=== PATIENT | female | born 1990 | race African-American/Black ===

== ENCOUNTER 2021-02-24 10:06 | Emergency (ER) | payer OTHER, SELFPAY ==
[2021-02-24 10:28] VITALS: BP 135/83; PULSE 93; RESP 18; TEMP 37.1; O2SAT 98; BMI 35.2
--- NOTE | 2021-02-24 10:42 | ED.GENADULT ---
HPI - General Adult General Chief complaint: Upper Respiratory Symptoms Stated complaint: runny nose, cough Time Seen by Provider: 02/24/21 10:14 Source: patient Mode of arrival: ambulatory Limitations: no limitations History of Present Illness HPI narrative: 30-year-old female who presents emergency department for evaluation of viral-like illness. Patient states she has been sick for approximately 6 days. She states she has a headache which she describes as a diffuse, throbbing sensation which is constant and mild to moderate intensity. She states she has had a cough which is mainly nonproductive. She complains of a sore throat which is worse with swallowing. She has nasal conduction. She states she has myalgias but no arthralgias. She had 1-2 episodes of loose diarrheal stool 2 days prior but then this resolved. She denied loss of sense of taste or smell. The patient has not had COVID-19 infection. She has not been vaccinated for COVID-19. She states that her significant other is ill with similar symptoms and had a negative COVID-19 test. She has 2 children 11 years old and 6-month-old that have similar symptoms that are patient is here in the emergency department as well. Related Data Home Medications Medication Instructions Recorded Confirmed No Known Home Meds 02/12/21 02/12/21 Allergies Allergy/AdvReac Type Severity Reaction Status Date / Time No Known Allergies Allergy Verified 02/12/21 11:36 Review of Systems Review of Systems: Yes all other systems are reviewed and are negative [facility] Past Medical History [facility] Narrative: Patient has no chronic medical problems. She smokes 1/4 pack of cigarettes per day times 12 years, she occasionally drinks alcohol, she denies drug use. Surgical History (Updated 02/12/21 @ 11:37 by SRINIVAS Herr) History of 2 sections Family History Family History (Updated 02/12/21 @ 11:38 by SRINIVAS Herr) Mother No problems noted. Father No problems noted. Social History Social History (Updated 02/12/21 @ 11:38 by SRINIVAS Herr) Alcohol intake: current Alcohol intake frequency: a few times a month Smoking Status: Current every day smoker Cigarettes Per Day: 6 Advance Directives: No Advance Directives Information Provided: No Patient : No Physical Exam Vital Signs: Vital Signs: Last Vital Signs Temp 98.8 F 02/24/21 10:28 Pulse 93 02/24/21 10:28 Resp 18 02/24/21 10:28 BP 135/83 02/24/21 10:28 Pulse Ox 98 02/24/21 10:28 Body Mass Index 35.2 Const: General: cooperative and healthy appearing Orientation/consciousness: oriented to person and oriented to place Limitations: no limitations HENMT: Head: Yes normal to inspection, Yes normocephalic and Yes atraumatic Ears: external ears normal General nose exam: Normal external nose present Face and sinus: Yes normal facial exam Mouth: Normal oral and palatal mucosa present Throat: Yes posterior oropharynx normal Eyes: Periorbital: periorbital findings normal Eyelids: Yes eyelids normal Conjunctivae: conjunctivae normal Sclerae: sclerae normal Corneas: corneas normal Pupils: Equal, round and reactive pupils present Direct Ophthalmoscopy: normal light reflex Neck: Neck: Yes full ROM, Yes no lymphadenopathy, Yes no meningeal signs, Yes trachea midline and Yes supple Chest: Chest palpation & inspection: normal inspection of the chest and normal palpation of entire chest wall Resp: Effort & Inspection: normal respiratory effort and able to speak in complete sentences Auscultation: clear to auscultation bilaterally Cardio: Rate: regular rate Rhythm: regular rhythm Heart sounds: S1 normal heart sound present, S2 normal heart sound present and no murmurs GI: Inspection: Yes normal to inspection Palpation (GI): Soft to palpation, nontender, no guarding, not rigid and No hepatosplenomegaly present : General: Yes no CVA tenderness Back/Spine/Pelvis: Back: no CVA tenderness Cervical Spine: normal cervical lordosis Thoracic/Lumbar Spine: thoracic and lumbar spine normal to inspection Skin: Lesions: no lesions Rashes: no rashes Wounds: no wounds Neuro: General: oriented to person, oriented to place and no meningeal signs Cranial nerves: Yes CN's II-XII intact bilaterally and Yes Equal, round and reactive pupils present Cognition (Neuro): normal cognition Motor exam (neuro): 5/5 motor strength present throughout Extrem: General: Yes normal to inspection and Yes full ROM Psych: Appearance: well kempt Mental Status: mental status grossly normal Speech and movement: Normal speech and movement present Affect: normal affect Attitude: cooperative Thought process: Normal thought process present Thought content: Normal thought content present Course Course Course Narrative: 30-year-old female who presents emergency department for evaluation of viral-like illness x6 days. Patient's vital signs were reviewed and were normal. Physical examination was unremarkable. I did discuss viral infections with the patient. The patient was tested for COVID-19 and I will contact her with the results. She was discharged home and given verbal and printed instructions on viral illness. Discharge Plan Discharge Clinical Impression: Viral syndrome Patient Disposition: Home, Self-Care Instructions: Viral Syndrome (ED) Additional Instructions: Your examination and presentation is consistent with a virus causing your symptoms. (Viral syndrome) It can sometimes take 1-2 weeks to get better from my viral infection. Take Tylenol and ibuprofen as needed for pain and fever. Follow-up with your doctor in 2 days. Please return to the emergency department if your symptoms get worse or if you develop any symptoms that are concerning to you. Your test for the COVID-19 virus. I contact to with this result later today. Prescriptions: No Action No Known Home Meds RF: 0
[2021-02-24 11:19] LABS: COVID-19 Test Negative (Negative); IDNOW Serial# 9DD0AD1C
== END 2021-02-24 11:20 | disposition home or self-care (01) ==
PROVIDERS: Emergency Provider Emergency Medicine Emergency Medical Services; PCP Internal Medicine
DX: B34.9 Viral infection, unspecified (principal); R05 Cough; R51.9 Headache, unspecified; Z20.822 Contact with and (suspected) exposure to COVID-19
CPT/HCPCS: 36415; 87635; 99283

== ENCOUNTER 2021-02-25 11:00 | Outpatient (REF) | payer OTHER, SELFPAY ==
[2021-02-25 11:32] LABS: MANUAL DIFF FLAG NO
[2021-02-25 11:38] LABS: Basophils Percent Auto 0.6 % (0-2); Eosinophils Absolute Auto 0.2 X10*3/uL (0.0-0.4); Eosinophils Percent Auto 6.1 % (0-4); Hemoglobin 11.5 g/dl (12.0-16.0); Lymphocytes Absolute Auto 1.4 X10*3/uL (1.2-4.9); Mean Corpuscular HGB Conc 31.1 g/dl (31.0-35.0); Mean Corpuscular Hemoglobin 26.5 pg (27.0-33.0); Mean Corpuscular Volume 85.3 fL (80-98); Mean Platelet Volume 9.1 fL (9.4-12.3); Monocytes Absolute Auto 0.4 X10*3/uL (0.1-1.2); Monocytes Percent Auto 11.6 % (2-11); Neutrophils Absolute Auto 1.3 X10*3/uL (2.0-8.3); Neutrophils Percent Auto 40.7 % (45-73); Platelet Count 302 X10*3/uL (160-400); Red Blood Count 4.34 X10*6/uL (4.20-5.50); Red Cell Distribution Width 15.3 % (11.0-16.0); White Blood Count 3.3 X10*3/uL (4.8-10.8)
[2021-02-25 12:27] LABS: Thyroid Stimulating Hormone 2.18 uIU/mL (0.32-4.0)
[2021-02-25 12:35] LABS: Alanine Aminotransferase 16 U/L (0-31); Albumin Level 4.2 g/dL (3.5-5.0); Alkaline Phosphatase 56 U/L (39-117); Anion Gap 12 (12-20); Aspartate Amino Transferase 16 U/L (5-31); Bilirubin Total 0.3 mg/dL (0.0-1.0); Blood Urea Nitrogen 11 mg/dL (9-16); Calcium 9.6 mg/dL (8.4-10.2); Carbon Dioxide 27 mmol/L (22-29); Chloride 104 mmol/L (96-108); Cholesterol 198 mg/dL; Estimated Glomerular Filt Rate > 60; Glucose Fasting 92 mg/dL (60-99); HDL Cholesterol 51 mg/dL; LDL Cholesterol Calculated 136 mg/dl; Potassium 4.7 mmol/L (3.3-5.1); Sodium 138 mmol/L (135-145); Total Protein 7.3 g/dL (6.5-8.0); Triglycerides 58 mg/dL
== END 2021-02-25 11:01 | disposition home or self-care (01) ==
LOC: HO.LAB 11:00
PROVIDERS: PCP Internal Medicine; Visit Provider Internal Medicine
DX: Z00.00 Encounter for general adult medical examination without abnormal findings (principal); E11.9 Type 2 diabetes mellitus without complications; E03.9 Hypothyroidism, unspecified
CPT/HCPCS: 36415; 80053; 80061; 84443; 85025

== ENCOUNTER 2021-10-06 11:26 | Emergency (ER) | payer OTHER, SELFPAY ==
[2021-10-06 11:30] VITALS: BP 113/57; PULSE 77; RESP 18; TEMP 36.8; O2SAT 100; BMI 30.7
--- NOTE | 2021-10-06 12:22 | PC.NURSE ---
PT [facility]BS- TOLD REGISTRATION 'I DONT KNOW WHY I AM HERE, I WAS JUST SUPPOSE TO GO HAVE LAB WORK THIS RN TO BEDSIDE TO SPEAK W/PT BUT SHE WAS ALREADY SEEN LEAVING BY ANCILLARY STAFF
== END 2021-10-06 12:29 | disposition left against medical advice (07) ==
PROVIDERS: Emergency Provider Emergency Medicine; PCP Internal Medicine
DX: R79.89 Other specified abnormal findings of blood chemistry (principal); M79.642 Pain in left hand; M79.641 Pain in right hand
CPT/HCPCS: 99281; 99282

== ENCOUNTER 2021-10-08 09:11 | Outpatient (REF) | payer OTHER, SELFPAY ==
[2021-10-08 09:22] LABS: MANUAL DIFF FLAG NO
[2021-10-08 09:38] LABS: Basophils Percent Auto 0.7 % (0-2); Eosinophils Absolute Auto 0.1 X10*3/uL (0.0-0.4); Eosinophils Percent Auto 2.9 % (0-4); Hematocrit 35.9 % (37.0-47.0); Imm Gran Abs Auto 0.01 X10*3/uL (0.00-0.03); Imm Gran Pct Auto 0.2 % (0.0-0.4); Lymphocytes Absolute Auto 1.6 X10*3/uL (1.2-4.9); Lymphocytes Percent Auto 37.6 % (20-40); Mean Corpuscular HGB Conc 30.6 g/dl (31.0-35.0); Mean Corpuscular Hemoglobin 27.5 pg (27.0-33.0); Mean Corpuscular Volume 89.8 fL (80.0-98.0); Mean Platelet Volume 9.3 fL (9.4-12.3); Monocytes Absolute Auto 0.4 X10*3/uL (0.1-1.2); Monocytes Percent Auto 8.6 % (2-11); Neutrophils Absolute Auto 2.1 x10*3/uL (2.0-8.3); Platelet Count 380 X10*3/uL (160-400); Red Cell Distribution Width 14.6 % (11.0-16.0); White Blood Count 4.2 X10*3/uL (4.8-10.8)
[2021-10-08 10:02] LABS: Alanine Aminotransferase 16 U/L (0-31); Albumin Level 4.2 g/dL (3.5-5.0); Alkaline Phosphatase 49 U/L (39-117); Anion Gap 12 (12-20); Aspartate Amino Transferase 16 U/L (5-31); Bilirubin Total 0.3 mg/dL (0.0-1.0); Blood Urea Nitrogen 13 mg/dL (9-16); Carbon Dioxide 27 mmol/L (22-29); Chloride 105 mmol/L (96-108); Cholesterol 202 mg/dL; Estimated Glomerular Filt Rate > 60; Glucose Fasting 93 mg/dL (60-99); HDL Cholesterol 52 mg/dL; LDL Cholesterol Calculated 134 mg/dl; Potassium 4.7 mmol/L (3.3-5.1); Sodium 139 mmol/L (135-145); Total Protein 7.2 g/dL (6.5-8.0); Triglycerides 80 mg/dL
[2021-10-08 10:23] LABS: Thyroid Stimulating Hormone 2.14 uIU/mL (0.32-4.0)
== END 2021-10-08 09:12 | disposition home or self-care (01) ==
LOC: HO.LAB 09:11
PROVIDERS: Visit Provider Internal Medicine
DX: Z00.00 Encounter for general adult medical examination without abnormal findings (principal); Z13.0 Encounter for screening for diseases of the blood and blood-forming organs and certain disorders involving the immune mechanism
CPT/HCPCS: 36415; 80053; 80061; 84443; 85025

== ENCOUNTER 2022-03-07 10:01 | Outpatient (REF) | payer OTHER, SELFPAY | END 2022-03-07 10:02 | disposition home or self-care (01) | LOC: HO.LAB 10:01 | PROVIDERS: Visit Provider Internal Medicine | DX: Z20.822 Contact with and (suspected) exposure to COVID-19 (principal); R09.89 Other specified symptoms and signs involving the circulatory and respiratory systems | CPT/HCPCS: U0003; U0005 ==

== ENCOUNTER 2022-03-16 09:25 | Outpatient (REF) | payer OTHER, SELFPAY ==
--- NOTE | 2022-03-16 09:29 | EMG_ITS ---
This is a 31-year-old woman who has had pain and sensitivity in all of her limbs, upper and lower extremities for years, sometimes worse than others. PHYSICAL EXAMINATION: Neurological examination is normal. IMPRESSION: Rule out neuropathy. Nerve conduction EMG study: Normal electrodiagnostic study of both upper extremities with no evidence of nerve entrapment or neuropathy. Normal EMG of the left C5-T1 innervated muscles. MD JENNIFER Booth/LAILA / [id number]
== END 2022-03-16 09:26 | disposition home or self-care (01) ==
LOC: HO.NEURO 09:25
PROVIDERS: PCP Internal Medicine; Visit Provider Internal Medicine
DX: R20.0 Anesthesia of skin (principal)
CPT/HCPCS: 95885; 95913

== ENCOUNTER 2022-05-16 13:34 | Outpatient (REF) | payer OTHER, SELFPAY ==
[2022-05-16 13:52] LABS: MANUAL DIFF FLAG NO
[2022-05-16 14:35] LABS: Basophils Percent Auto 0.5 % (0-2); Eosinophils Absolute Auto 0.1 X10*3/uL (0.0-0.4); Eosinophils Percent Auto 2.7 % (0-4); Hematocrit 36.3 % (37.0-47.0); Hemoglobin 11.5 g/dl (12.0-16.0); Imm Gran Abs Auto 0.02 X10*3/uL (0.00-0.03); Imm Gran Pct Auto 0.5 % (0.0-0.4); Lymphocytes Absolute Auto 1.3 X10*3/uL (1.2-4.9); Lymphocytes Percent Auto 32.1 % (20-40); Mean Corpuscular HGB Conc 31.7 g/dl (31.0-35.0); Mean Corpuscular Hemoglobin 27.3 pg (27.0-33.0); Mean Platelet Volume 9.6 fL (9.4-12.3); Monocytes Absolute Auto 0.4 X10*3/uL (0.1-1.2); Neutrophils Absolute Auto 2.2 x10*3/uL (2.0-8.3); Neutrophils Percent Auto 54.2 % (45-73); Platelet Count 317 X10*3/uL (160-400); Red Blood Count 4.22 X10*6/uL (4.20-5.50); Red Cell Distribution Width 15.1 % (11.0-16.0)
[2022-05-16 15:10] LABS: Anion Gap 12 (12-20); Blood Urea Nitrogen 11 mg/dL (9-16); Calcium 9.5 mg/dL (8.4-10.2); Carbon Dioxide 25 mmol/L (22-29); Chloride 103 mmol/L (96-108); Estimated Glomerular Filt Rate > 60; Glucose Random 80 mg/dL (60-115); Potassium 4.3 mmol/L (3.3-5.1); Sodium 136 mmol/L (135-145)
[2022-05-16 15:20] LABS: Erythrocyte Sedimentation Rate 9 MM/HR (0-20)
[2022-05-16 15:56] LABS: Folate 7.4 ng/mL (> or = 4.0); Vitamin B12 838 pg/mL (200-900)
[2022-05-18 05:15] LABS: Lyme Abs Screen <0.90 index
[2022-05-18 22:28] LABS: Anti Nuclear Antibody Screen NEGATIVE (NEGATIVE)
== END 2022-05-16 13:35 | disposition home or self-care (01) ==
LOC: HO.LAB 13:34
PROVIDERS: PCP Internal Medicine; Visit Provider Psychiatry & Neurology Neurology
DX: G37.9 Demyelinating disease of central nervous system, unspecified (principal); G62.9 Polyneuropathy, unspecified
CPT/HCPCS: 36415; 80048; 82607; 82746; 85025; 85652; 86038; 86039; 86617; 86618

== ENCOUNTER 2022-05-25 09:45 | Outpatient (REF) | payer OTHER, SELFPAY ==
--- NOTE | ~2022-05-25 | MR_ITS ---
EXAMINATION: MR BRAIN WITHOUT CONTRAST CLINICAL INFORMATION: Demyelinating disease. Rule out MS. COMPARISON: None available. TECHNIQUE: Multiplanar, multisequence imaging of the brain was performed without intravenous contrast. FINDINGS: There is no acute infarction, mass, hemorrhage, or extra-axial collection. The ventricles, sulci, and basilar cisterns are normal in size and configuration. The brain parenchyma signal appears normal. No demyelinating plaques are seen. The corpus callosum and posterior fossa structures appear normal. The flow voids of the major intracranial arteries appear intact. The bones and extracranial soft tissues are unremarkable. Mild ethmoid mucosal thickening is noted. MR/MR head/brain wo con IMPRESSION: No acute infarct, mass lesion, intracranial hemorrhage, or evidence of hydrocephalus. No evidence of demyelinating plaques.
== END 2022-05-25 09:46 | disposition home or self-care (01) ==
LOC: HO.MRI 09:45
PROVIDERS: Visit Provider Psychiatry & Neurology Neurology
DX: G37.9 Demyelinating disease of central nervous system, unspecified (principal)
CPT/HCPCS: 70551

== ENCOUNTER 2022-12-16 14:13 | Outpatient (REF) | payer OTHER, SELFPAY ==
[2022-12-17 03:25] LABS: CT PCR NOT DETECTED (Not Detect.); NG PCR NOT DETECTED (Not Detect.)
[2022-12-17 11:36] LABS: BV Int Neg Control Negative (Negative); BV Int Pos Control Positive (Positive)
[2022-12-21 01:10] LABS: HPV mRNA E6/E7 rflx Not Detected (Not Detected)
== END 2022-12-16 14:14 | disposition home or self-care (01) ==
LOC: HO.LNP 14:13
PROVIDERS: PCP Internal Medicine; Visit Provider Advanced Practice Midwife
DX: Z01.419 Encounter for gynecological examination (general) (routine) without abnormal findings (principal); Z11.51 Encounter for screening for human papillomavirus (HPV); R21 Rash and other nonspecific skin eruption; R50.9 Fever, unspecified; N61.0 Mastitis without abscess; N61.1 Abscess of the breast and nipple
CPT/HCPCS: 0353U; 87480; 87510; 87624; 87660; 88142

== ENCOUNTER 2022-12-17 10:20 | Emergency (ER) | payer OTHER, SELFPAY ==
--- NOTE | ~2022-12-17 | XR_ITS ---
EXAMINATION: XR CHEST CLINICAL INFORMATION: Cough. COMPARISON: None TECHNIQUE: 2 views of the chest were obtained. FINDINGS: No significant abnormality is noted involving the heart, lungs, mediastinum, bony thorax or soft tissues. XR/XR chest 2V IMPRESSION: Unremarkable chest examination.
--- NOTE | ~2022-12-17 | US_ITS ---
EXAMINATION: US DIAGNOSTIC ULTRASOUND BREAST, LEFT CLINICAL INFORMATION: Abnormal clinical breast exam. Pain in 3:00 region. Clinical concern for abscess. COMPARISON: None. TECHNIQUE: Ultrasound of the breast is performed with real-time linda scale imaging and color Doppler. FINDINGS: There is some skin thickening. There is no suspicious breast mass demonstrated There are reticular hypoechoic areas within the soft tissues some of which are confluent. These do not have convex borders There is color signal. There is no large confluent collection. US/US breast LT limited IMPRESSION: Ultrasound left breast is abnormal. There are reticular hypoechoic areas in the soft tissues. Pattern could reflect moderately severe cellulitis. I recommend optimal medical management and short interval follow-up ultrasound in approximately 3-5 days. If there are worsening symptoms aspiration of one of the hypoechoic areas could be attempted. ASSESSMENT: BI-RADS 2: Benign RECOMMENDATION: There is no large drainable abscess. An evolving inflammatory process may be present. Close follow-up is necessary. Recommend optimal medical management. Recommend short interval follow-up ultrasound in 3-5 days. 1. Patient should be managed based on the clinical impression. Decision to proceed with biopsy should be based on clinical grounds and degree of clinical concern.
[2022-12-17 10:23] VITALS: BP 111/75; PULSE 88; RESP 17; TEMP 36.7; O2SAT 98; BMI 30.2
--- NOTE | 2022-12-17 10:28 | ECG_ITS ---
Test Reason : L BREAST PAIN Blood Pressure : / mmHG Vent. Rate : 102 BPM Atrial Rate : 102 BPM P-R Int : 130 ms QRS Dur : 084 ms QT Int : 308 ms P-R-T Axes : 065 049 017 degrees QTc Int : 401 ms Sinus tachycardia Otherwise normal ECG No previous ECGs available Referred By: Generic ED Physician Electronically Signed By:IZZY TORRES MD
--- NOTE | 2022-12-17 11:43 | ED.GENADULT ---
HPI - General Adult General Chief complaint: General Medical Stated complaint: l breast issue and labs Time Seen by Provider: 12/17/22 11:35 History of Present Illness HPI narrative: 32y/o female with PMHx of lichen planus and peripheral neuropathy admitted with lump in left breast, discharge from nipple piercing site, fever, sore throat, body aches and headache for 3 days. Pt states she noticed a scratch near her nipple piercing about one week ago and the discharge, fever, body aches began about 3 days ago. Pt denies sick contacts. Pt denies recent changes in medications. Pt denies SOB, N/V/D Related Data Home Medications Medication Instructions Recorded Confirmed gabapentin 300 mg capsule 0 mg PO 10/25/22 12/16/22 Allergies Allergy/AdvReac Type Severity Reaction Status Date / Time No Known Allergies Allergy Verified 12/16/22 14:17 [facility] Past Medical History Medical History Obesity Surgical History History of 2 sections Family History Family History (Updated 12/16/22 @ 14:18 by SRINIVAS Schulz) Mother No problems noted. Father No problems noted. Paternal Grandmother Lung cancer Social History Social History (Updated 12/16/22 @ 14:19 by SRINIVAS Schulz) Housing: Apartment Alcohol intake: current Alcohol intake frequency: a few times a month Patient Tobacco Use Status: Current everyday Tobacco user Tobacco use type: Cigarette Cigarettes Per Day: 2 e-Cigarette/Vaping Use: Never Used Second Hand Smoke Exposure: Yes Substance Use Type: Marijuana Advance Directives: No Advance Directives Information Provided: Yes service: No Current occupational status: unemployed Cognitive needs: No Hearing needs: No Vision needs: Yes (Glasses) Physical Exam ED Vital Signs: Vital Signs - 24 hr 12/17/22 10:23 Temperature 98.1 F Pulse Rate 88 Respiratory Rate 17 Blood Pressure 111/75 Pulse Oximetry 98 Oxygen Delivery Method Room Air BMI result Body Mass Index 30.2 Discharge Plan Discharge Prescriptions: No Action gabapentin 300 mg capsule 0 mg PO
[2022-12-17 11:55] LABS: Hematocrit 32.2 % (37.0-47.0); Hemoglobin 10.4 g/dl (12.0-16.0); Mean Corpuscular HGB Conc 32.3 g/dl (31.0-35.0); Mean Corpuscular Hemoglobin 26.5 pg (27.0-33.0); Mean Corpuscular Volume 81.9 fL (80.0-98.0); Platelet Count 229 X10*3/uL (160-400); Red Blood Count 3.93 X10*6/uL (4.20-5.50); Red Cell Distribution Width 13.7 % (11.0-16.0); White Blood Count 7.9 X10*3/uL (4.8-10.8)
[2022-12-17 12:07] LABS: Anion Gap 14 (12-20); Blood Urea Nitrogen 8 mg/dL (9-16); Calcium 8.6 mg/dL (8.4-10.2); Carbon Dioxide 23 mmol/L (22-29); Chloride 101 mmol/L (96-108); Estimated Glomerular Filt Rate > 60; Glucose Random 89 mg/dL (60-115); Potassium 3.4 mmol/L (3.3-5.1); Sodium 135 mmol/L (135-145)
[2022-12-17 12:50] LABS: MANUAL DIFF FLAG NO
[2022-12-17 12:51] LABS: Basophils Percent Auto 0.4 % (0-2); Eosinophils Percent Auto 0.1 % (0-4); Hematocrit 34.2 % (37.0-47.0); Hemoglobin 10.8 g/dl (12.0-16.0); Imm Gran Abs Auto 0.02 X10*3/uL (0.00-0.03); Imm Gran Pct Auto 0.3 % (0.0-0.4); Lymphocytes Percent Auto 12.5 % (20-40); Mean Corpuscular HGB Conc 31.6 g/dl (31.0-35.0); Mean Corpuscular Hemoglobin 25.8 pg (27.0-33.0); Mean Corpuscular Volume 81.8 fL (80.0-98.0); Mean Platelet Volume 8.6 fL (9.4-12.3); Monocytes Absolute Auto 0.9 X10*3/uL (0.1-1.2); Monocytes Percent Auto 11.4 % (2-11); Neutrophils Percent Auto 75.3 % (45-73); Platelet Count 226 X10*3/uL (160-400); Red Blood Count 4.18 X10*6/uL (4.20-5.50); Red Cell Distribution Width 13.6 % (11.0-16.0)
[2022-12-17 12:56] LABS: INTERNATIONAL NORM RATIO 1.3 (0.9-1.1); Prothrombin Time 15.6 SEC (10.0-13.1)
[2022-12-17 13:04] LABS: Lactic Acid 0.8 mmol/L (0.5-2.0)
[2022-12-17 13:15] LABS: Alanine Aminotransferase 14 U/L (0-31); Albumin Level 4.1 g/dL (3.5-5.0); Alkaline Phosphatase 63 U/L (39-117); Anion Gap 16 (12-20); Aspartate Amino Transferase 18 U/L (5-31); Bilirubin Total 0.5 mg/dL (0.0-1.0); Blood Urea Nitrogen 8 mg/dL (9-16); Calcium 8.9 mg/dL (8.4-10.2); Carbon Dioxide 22 mmol/L (22-29); Chloride 100 mmol/L (96-108); Creatinine Clr Calc Pharmacy 136.3; Estimated Glomerular Filt Rate > 60; Glucose Random 84 mg/dL (60-115); Magnesium 1.7 mg/dL (1.6-2.6); Potassium 3.4 mmol/L (3.3-5.1); Sodium 135 mmol/L (135-145); Total Protein 7.1 g/dL (6.5-8.0)
[2022-12-17 13:17] LABS: HCG Quantitative < 2 mIU/mL
[2022-12-17 13:29] LABS: Influenza A PCR NEGATIVE (Negative); Influenza B PCR NEGATIVE (Negative); Resp Syncy Virus RNA Qual PCR NEGATIVE (Negative); SARS COV2 PCR INHOUSE NEGATIVE (Negative)
--- NOTE | 2022-12-17 14:42 | ED.SKABFB ---
HPI - Skin/Abscess/Foreign Bdy General Chief complaint: General Medical Stated complaint: l breast issue and labs Time Seen by Provider: 12/17/22 11:35 Source: patient Mode of arrival: ambulatory Limitations: no limitations History of Present Illness HPI narrative: 32yoF with a PMHx of lichen planus and peripheral neuropathy presenting to the ER with complaints of a lump in the left breast, discharge from nipple piercing site that she obtained in July of 2022, subjective fevers fever, chills, sore throat, body aches and headache for 3 days. Pt states she noticed a scratch near her nipple piercing about one week ago and the discharge, fever, body aches began about 3 days ago. Patient denies any measured fevers, dizziness, neck pain/stiffness, trouble swallowing or breathing, cough, chest pain or shortness of breath, nasal congestion/rhinorrhea, recent falls or trauma, current breast-feeding, recent or , sick contacts, change in medications, nausea/vomiting/diarrhea, abdominal pain, back pain, flank pain, dysuria, hematuria, abnormal vaginal discharge black or bloody stools, lower extremity edema or calf tenderness or any other symptoms complaints or concerns at this time. Reports she has never had this in the past. MD complaint: abscess/boil Onset (ago): week(s) (1) Location: chest (Left breast) Severity: moderate Quality: aching and constant Pain Consistency: constant Relieving factors: none Exacerbating factors: palpation and movement Context: other (History of a nipple piercing in July of 2022) Associated symptoms: fever, chills, malaise and myalgias Treatments prior to arrival: none Related Data Home Medications Medication Instructions Recorded Confirmed gabapentin 300 mg capsule 0 mg PO 10/25/22 12/16/22 Previous Rx's Medication Instructions Recorded cephalexin 500 mg capsule 500 mg PO Q8H 10 days #30 caps 12/17/22 doxycycline monohydrate 100 mg 100 mg PO BID 10 days #20 tabs 12/17/22 tablet ibuprofen 800 mg tablet 800 mg PO Q8H PRN pain #14 tabs 12/17/22 oxycodone 5 mg tablet 5 mg PO Q6H PRN pain #14 tabs 12/17/22 Allergies Allergy/AdvReac Type Severity Reaction Status Date / Time No Known Allergies Allergy Verified 12/16/22 14:17 Review of Systems Review of Systems: Constitutional : + generalized fatigue/malaise/subjective fevers and chills, Denies history of same, Denies any other sites involved, Denies IV drug use, Denies history of MRSA, Denies swollen glands, Denies injury, + Sig Pain, Denies Systemic symptoms Cardiovascular : No Chest Pain, No SOB Respiratory : No Dyspnea Gastrointestinal : No abdominal pain Musculoskeletal : No Joint Swelling Skin : + surrounding erythema/swelling to left breast area with discharge from the nipple through the nipple ring holes, no obvious abscess, No skin laceration, No Foreign bodies, No spreading rash, Denies bites Neuro : No Weakness, No Numbness/tingling Psych : No SI/HI/thoughts of self injury Yes all other systems are reviewed and are negative [facility] Past Medical History Attestation statement: The following information was validated with the patient. Source: old records reviewed and nursing notes reviewed Medical History Obesity Surgical History History of 2 sections Family History Family History Mother No problems noted. Father No problems noted. Paternal Grandmother Lung cancer Social History Social History Housing: Apartment Alcohol intake: current Alcohol intake frequency: a few times a month Patient Tobacco Use Status: Current everyday Tobacco user Tobacco use type: Cigarette Cigarettes Per Day: 2 e-Cigarette/Vaping Use: Never Used Second Hand Smoke Exposure: Yes Substance Use Type: Marijuana Advance Directives: No Advance Directives Information Provided: Yes service: No Current occupational status: unemployed Cognitive needs: No Hearing needs: No Vision needs: Yes (Glasses) Physical Exam Vital Signs: Vital Signs: Last Vital Signs Temp 98.1 F 12/17/22 10:23 Pulse 88 12/17/22 10:23 Resp 17 12/17/22 10:23 BP 111/75 12/17/22 10:23 Pulse Ox 98 12/17/22 10:23 O2 Del Method 12/17/22 10:23 BMI result Body Mass Index 30.2 vital signs have been reviewed as normal and appeared to be correct. Blood pressure normal Heart rate normal. Respiration rate normal. Temperature normal. Oxygen saturation normal. Appearance: Alert. Oriented X3. No acute distress. Head: Normal external exam. Normocephalic. Atraumatic. Eyes: PERRLA. EOMI. Conjunctiva and sclera normal. Eyelids normal. ENT: EAC normal. TM's Normal. Pharynx normal. Uvula midline. Moist mucous membranes. No lesions/ulcerations or masses noted on the tongue. Normal voice. No trismus noted. No drooling noted. No muffled voice noted. Neck: Normal inspection. Neck supple. FROM. No adenopathy. Thyroid Normal. No meningeal signs. CVS: Normal heart rate and rhythm. Heart sound normal. Pulses normal throughout. No murmurs/rales/gallops. Respiratory: No respiratory distress. Painless inspiration. Breath sounds normal. No wheezes/rales/rhonchi noted. No accessory muscle usage noted or decreased air movement noted. Breast: Right breast within normal limits. Left breast patient has moderate erythema/soft tissue swelling and warmth to touch with tenderness palpation to the 3-6 o'clock area. She is noted to have a nipple ring in place with purulent drainage excreting from the nipple ring. There is no induration of the nipples. There is no obvious abscess. There are no signs of trauma. Abdomen: Soft and nontender. Back: Full range of motion noted. Nontender. Skin: Skin warm and dry. Normal skin color. Normal skin turgor. No rashes/lesions/lacerations noted. Extremities: Extremities exhibit normal range of motion and nontender. Neuro: Oriented X 3. No motor deficit. No sensory deficit. Reflexes normal. Normal steady gait. No focal neuro deficits noted. CN's II-XII intact bilaterally? Vascular: + radial pulses. Normal cap refill. No cyanosis noted to upper extremity nails Course Course Course Narrative: 32yoF with a PMHx of lichen planus and peripheral neuropathy presenting to the ER with complaints of a lump in the left breast, discharge from nipple piercing site that she obtained in July of 2022, subjective fevers fever, chills, sore throat, body aches and headache for 3 days. Pt states she noticed a scratch near her nipple piercing about one week ago and the discharge, fever, body aches began about 3 days ago. Reports she has never had this in the past. Concern for cellulitis versus abscess versus mass. Although most likely cellulitis as patient is not . Plan: Will obtain labs, blood cultures, lactic acid, chest x-ray, ultrasound of left breast limited, COVID/RSV/flu swab, EKG and re-evaluate. Reevaluation(s) Reevaluation #1: Labs reviewed - mild anemia with an H&H of 10.8/34.2. - BUN 8 - patient negative for COVID/RSV/flu - serum quant negative Otherwise all other labs are within normal limits. Chest x-ray within normal limits no acute processes noted. Breast ultrasound negative for any large drainable abscess although they are reporting possible breast cellulitis. On my exam this is consistent with breast cellulitis. Will DC home with antibiotics doxycycline and Keflex with instructions to follow-up with her PCP for repeat imaging and outpatient mammogram. I also will give her the number to the general surgeon for consultation. And instructions return if any new or worsening symptoms. Patient understands agrees with this plan. Time: 14:54 Consultations Time: 14:54 Medical Decision Making Admission/Observation Consideration of admission/observation: Escalation of care including admission/observation considered (I considered admission although patient does not meet inpatient criteria at this time she has not been on antibiotics and her labs are within normal limits at this time) Lab Data MDM Lab Attestation statement: I reviewed the patient's lab results. 12/17/22 12:43 12/17/22 12:43 Labs: Lab Results 12/17/22 12/17/22 12/17/22 Range/Units 11:50 11:50 12:43 WBC 7.9 8.0 (4.8-10.8) X10*3/uL RBC 3.93 L 4.18 L (4.20-5.50) X10*6/uL Hgb 10.4 L 10.8 L (12.0-16.0) g/dl Hct 32.2 L 34.2 L (37.0-47.0) % MCV 81.9 81.8 (80.0-98.0) fL MCH 26.5 L 25.8 L (27.0-33.0) pg MCHC 32.3 31.6 (31.0-35.0) g/dl RDW 13.7 13.6 (11.0-16.0) % Plt Count 229 D 226 (160-400) X10*3/uL MPV 9.0 L 8.6 L (9.4-12.3) fL Immature Gran % (Auto) 0.3 (0.0-0.4) % Neut % (Auto) 75.3 H (45-73) % Lymph % (Auto) 12.5 L (20-40) % Jefferson % (Auto) 11.4 H (2-11) % Eos % (Auto) 0.1 (0-4) % Baso % (Auto) 0.4 (0-2) % Lymph # (Auto) 1.0 L (1.2-4.9) X10*3/uL Jefferson # (Auto) 0.9 (0.1-1.2) X10*3/uL Eos # (Auto) 0.0 (0.0-0.4) X10*3/uL Baso # (Auto) 0.0 (0.0-0.2) X10*3/uL Abs Immat Gran (auto) 0.02 (0.00-0.03) X10*3/uL Absolute Neuts (auto) 6.0 (2.0-8.3) x10*3/uL Absolute Nucleated RBC 0.000 0.000 (0.0-0.012) X10*3/uL Nucleated RBC % (auto) 0.0 0.0 (0.0-0.2) /100WBC PT (10.0-13.1) SEC INR (0.9-1.1) Sodium 135 (135-145) mmol/L Potassium 3.4 D (3.3-5.1) mmol/L Chloride 101 (96-108) mmol/L Carbon Dioxide 23 (22-29) mmol/L Anion Gap 14 (12-20) BUN 8 L (9-16) mg/dL Creatinine 0.77 (0.5-1.4) mg/dL Estim Creat Clear Calc 138.0 Estimated GFR > 60 Random Glucose 89 (60-115) mg/dL Lactic Acid (0.5-2.0) mmol/L Calcium 8.6 D (8.4-10.2) mg/dL Magnesium (1.6-2.6) mg/dL Total Bilirubin (0.0-1.0) mg/dL AST (5-31) U/L ALT (0-31) U/L Alkaline Phosphatase (39-117) U/L Total Protein (6.5-8.0) g/dL Albumin (3.5-5.0) g/dL Beta HCG, Quant mIU/mL Influenza Type A (PCR) (Negative) Influenza Type B (PCR) (Negative) RSV RNA Qual (PCR) (Negative) SARS-CoV-2 RNA (RT-PCR) (Negative) 12/17/22 12/17/22 12/17/22 Range/Units 12:43 12:43 12:43 WBC (4.8-10.8) X10*3/uL RBC (4.20-5.50) X10*6/uL Hgb (12.0-16.0) g/dl Hct (37.0-47.0) % MCV (80.0-98.0) fL MCH (27.0-33.0) pg MCHC (31.0-35.0) g/dl RDW (11.0-16.0) % Plt Count (160-400) X10*3/uL MPV (9.4-12.3) fL Immature Gran % (Auto) (0.0-0.4) % Neut % (Auto) (45-73) % Lymph % (Auto) (20-40) % Jefferson % (Auto) (2-11) % Eos % (Auto) (0-4) % Baso % (Auto) (0-2) % Lymph # (Auto) (1.2-4.9) X10*3/uL Jefferson # (Auto) (0.1-1.2) X10*3/uL Eos # (Auto) (0.0-0.4) X10*3/uL Baso # (Auto) (0.0-0.2) X10*3/uL Abs Immat Gran (auto) (0.00-0.03) X10*3/uL Absolute Neuts (auto) (2.0-8.3) x10*3/uL Absolute Nucleated RBC (0.0-0.012) X10*3/uL Nucleated RBC % (auto) (0.0-0.2) /100WBC PT 15.6 H (10.0-13.1) SEC INR 1.3 H (0.9-1.1) Sodium 135 (135-145) mmol/L Potassium 3.4 (3.3-5.1) mmol/L Chloride 100 (96-108) mmol/L Carbon Dioxide 22 (22-29) mmol/L Anion Gap 16 (12-20) BUN 8 L (9-16) mg/dL Creatinine 0.78 (0.5-1.4) mg/dL Estim Creat Clear Calc 136.3 Estimated GFR > 60 Random Glucose 84 (60-115) mg/dL Lactic Acid 0.8 (0.5-2.0) mmol/L Calcium 8.9 (8.4-10.2) mg/dL Magnesium 1.7 (1.6-2.6) mg/dL Total Bilirubin 0.5 (0.0-1.0) mg/dL AST 18 (5-31) U/L ALT 14 (0-31) U/L Alkaline Phosphatase 63 (39-117) U/L Total Protein 7.1 (6.5-8.0) g/dL Albumin 4.1 (3.5-5.0) g/dL Beta HCG, Quant < 2 mIU/mL Influenza Type A (PCR) (Negative) Influenza Type B (PCR) (Negative) RSV RNA Qual (PCR) (Negative) SARS-CoV-2 RNA (RT-PCR) (Negative) 12/17/22 Range/Units 12:44 WBC (4.8-10.8) X10*3/uL RBC (4.20-5.50) X10*6/uL Hgb (12.0-16.0) g/dl Hct (37.0-47.0) % MCV (80.0-98.0) fL MCH (27.0-33.0) pg MCHC (31.0-35.0) g/dl RDW (11.0-16.0) % Plt Count (160-400) X10*3/uL MPV (9.4-12.3) fL Immature Gran % (Auto) (0.0-0.4) % Neut % (Auto) (45-73) % Lymph % (Auto) (20-40) % Jefferson % (Auto) (2-11) % Eos % (Auto) (0-4) % Baso % (Auto) (0-2) % Lymph # (Auto) (1.2-4.9) X10*3/uL Jefferson # (Auto) (0.1-1.2) X10*3/uL Eos # (Auto) (0.0-0.4) X10*3/uL Baso # (Auto) (0.0-0.2) X10*3/uL Abs Immat Gran (auto) (0.00-0.03) X10*3/uL Absolute Neuts (auto) (2.0-8.3) x10*3/uL Absolute Nucleated RBC (0.0-0.012) X10*3/uL Nucleated RBC % (auto) (0.0-0.2) /100WBC PT (10.0-13.1) SEC INR (0.9-1.1) Sodium (135-145) mmol/L Potassium (3.3-5.1) mmol/L Chloride (96-108) mmol/L Carbon Dioxide (22-29) mmol/L Anion Gap (12-20) BUN (9-16) mg/dL Creatinine (0.5-1.4) mg/dL Estim Creat Clear Calc Estimated GFR Random Glucose (60-115) mg/dL Lactic Acid (0.5-2.0) mmol/L Calcium (8.4-10.2) mg/dL Magnesium (1.6-2.6) mg/dL Total Bilirubin (0.0-1.0) mg/dL AST (5-31) U/L ALT (0-31) U/L Alkaline Phosphatase (39-117) U/L Total Protein (6.5-8.0) g/dL Albumin (3.5-5.0) g/dL Beta HCG, Quant mIU/mL Influenza Type A (PCR) NEGATIVE (Negative) Influenza Type B (PCR) NEGATIVE (Negative) RSV RNA Qual (PCR) NEGATIVE (Negative) SARS-CoV-2 RNA (RT-PCR) NEGATIVE (Negative) Independent Interpretation I performed an independent interpretation of an: Plain X-Ray (I reviewed the chest x-ray results they are within normal limits I am agreeable with radiologist report) and Ultrasound (I agree with ultrasound radiologist reports discussed with patient she understands the results) Radiology Impression Discussion of test interpretation with radiology: I have reviewed the radiologist's reading. Radiologist Impression: EXAMINATION: US DIAGNOSTIC ULTRASOUND BREAST, LEFT CLINICAL INFORMATION:? Abnormal clinical breast exam. Pain in 3:00 region. Clinical concern for abscess. COMPARISON: None. TECHNIQUE: Ultrasound of the breast is performed with real-time linda scale imaging and color Doppler. FINDINGS: There is some skin thickening.? There is no suspicious breast mass demonstrated There are reticular hypoechoic areas within the soft tissues some of which are confluent. These do not have convex borders There is color signal. There is no large confluent collection. US/US breast LT limited IMPRESSION: Ultrasound left breast is abnormal. There are reticular hypoechoic areas in the soft tissues. ? Pattern could reflect moderately severe cellulitis. ? I recommend optimal medical management and short interval follow-up ultrasound in approximately 3-5 days. If there are worsening symptoms aspiration of one of the hypoechoic areas could be attempted. ? ASSESSMENT:? BI-RADS 2: Benign ? RECOMMENDATION: There is no large drainable abscess. ? An evolving inflammatory process may be present. Close follow-up is necessary. Recommend optimal medical management. Recommend short interval follow-up ultrasound in 3-5 days. ? 1. Patient should be managed based on the clinical impression. Decision to proceed with biopsy should be based on clinical grounds and degree of clinical concern. EXAMINATION: XR CHEST CLINICAL INFORMATION: Cough. COMPARISON: None TECHNIQUE: 2 views of the chest were obtained. FINDINGS: No significant abnormality is noted involving the heart, lungs, mediastinum, bony thorax or soft tissues. XR/XR chest 2V IMPRESSION: Unremarkable chest examination. Independent Historian Clinical information obtained from an independent historian. History obtained from or confirmed by: Other (From patient) Prescription Management I considered prescription management with: Pain Medication (Will give oxycodone and Motrin for pain) and Antibiotic (Will DC home with antibiotics for cellulitis which include doxycycline and Keflex) Critical Care Time Critical Care Time Critical Care Time: Yes Total Critical Care Time: 60 Attestation: I personally attest to this time spent taking care of the patient Discharge Plan Discharge Clinical Impression: Cellulitis of left breast Patient Disposition: Home, Self-Care Instructions: Mastitis (ED), Cellulitis (ED) Additional Instructions: You were negative for COVID/RSV/flu. All your other labs are within normal limits. If you have any new or worsening symptoms he will need to return immediately. Prescriptions: New cephalexin 500 mg capsule 500 mg PO Q8H 10 Days Qty: 30 0RF doxycycline monohydrate 100 mg tablet 100 mg PO BID 10 Days Qty: 20 0RF ibuprofen 800 mg tablet 800 mg PO Q8H PRN (Reason: pain) Qty: 14 0RF oxycodone 5 mg tablet 5 mg PO Q6H PRN (Reason: pain) Qty: 14 0RF Rx Instructions: Partial Fill upon patient request. No Action gabapentin 300 mg capsule 0 mg PO Referrals: Jeremy Curry MD [Primary Care Provider] - 2 days (For further evaluation treatment and recheck of left breast cellulitis patient will possibly need an outpatient mammogram scheduled) Jhon Eldridge MD [Physician] - (For further evaluation treatment/drapery counselor on left breast cellulitis call to make a follow-up appointment) Stand Alone Forms: Work/School Release Interventions: ED Discharge Assessment Last Done: 12/17/22 15:07 Discharge Date/Time: 12/17/22 15:09
== END 2022-12-17 15:09 | disposition home or self-care (01) ==
PROVIDERS: Physician Assistant Medical; Emergency Provider Emergency Medicine; PCP Internal Medicine
DX: N61.0 Mastitis without abscess (principal); Z20.822 Contact with and (suspected) exposure to COVID-19; Z20.828 Contact with and (suspected) exposure to other viral communicable diseases; F17.210 Nicotine dependence, cigarettes, uncomplicated; F12.90 Cannabis use, unspecified, uncomplicated
CPT/HCPCS: 0241U; 36415; 71046; 76642; 80048; 80053; 83605; 83735; 84702; 85025; 85027; 85610; 87040; 93005; 99283; 99284

== ENCOUNTER → 2022-12-27 09:57 | Outpatient (BNVA) | payer OTHER, SELFPAY | PROVIDERS: PCP Internal Medicine; Visit Provider Surgery | DX: N61.1 Abscess of the breast and nipple (principal) | CPT/HCPCS: 99202 ==

== ENCOUNTER 2023-01-16 13:42 | Outpatient (REF) | payer OTHER, SELFPAY ==
--- NOTE | ~2023-01-16 | MM_ITS ---
EXAMINATION: MM DIAGNOSTIC DIGITAL BREAST TOMOSYNTHESIS, BILATERAL US DIAGNOSTIC ULTRASOUND BREAST, LEFT CLINICAL INFORMATION: Recent infection/inflammation anterior left breast, follow-up post antibiotics. Patient notes resolution of symptoms. No known family history breast cancer. The lifetime risk of breast cancer based on the Tyrer-Cuzick Model is 9%. COMPARISON: Targeted left breast ultrasound performed in the emergency department on 12/17/2022. No prior mammography. TECHNIQUE: Digital breast tomosynthesis is performed in both the craniocaudal and mediolateral oblique views along with computer-aided detection (CAD). Synthesized 2D images are generated from the tomosynthesis. Additional exaggerated right CC view is provided. Ultrasound left breast is targeted to the retroareolar and periareolar breast and 3:00 position using grayscale imaging and color Doppler without and with harmonics. FINDINGS: There are scattered areas of fibroglandular density (ACR BI-RADS breast composition Category b). There is no skin thickening or coarsening of the Martin's ligaments. No significant mass or architectural abnormality. No abnormal calcifications. There is a benign circumscribed nodule posterior upper outer breast. The axilla are unremarkable. There are bilateral nipple piercings. Ultrasound left breast demonstrates no cystic or solid mass. The reticular hypoechoic areas noted on prior marginal ultrasound are no longer demonstrated. No focal duct ectasia. No skin thickening or edema tracking in soft tissue planes. No abscess. Results are discussed with the patient at time of visit. Patient has follow-up appointment with surgeon this month. MM/MM tomosynthesis diagnostic BI IMPRESSION: -No mammographic evidence of malignancy or inflammatory changes. -Unremarkable targeted left breast ultrasound. Resolution of left breast ultrasound finding since prior imaging 12/17/2022. ASSESSMENT: BI-RADS 2: Benign RECOMMENDATION: 1. Patient should be managed based on the clinical impression. Patient has follow-up appointment with surgeon this month. 2. Otherwise, routine annual screening mammography, beginning age 40, or earlier as clinical risk factors warrant. This patient's information was entered into a reminder system with a target due date for their next mammogram.
== END 2023-01-16 13:43 | disposition home or self-care (01) ==
LOC: HO.MAMMO 13:42
PROVIDERS: PCP Internal Medicine; Visit Provider Internal Medicine
DX: N61.1 Abscess of the breast and nipple (principal)
CPT/HCPCS: 76642; 77062; 77066

== ENCOUNTER → 2023-01-20 10:40 | Outpatient (BNVA) | payer OTHER, SELFPAY | PROVIDERS: PCP Internal Medicine; Visit Provider Surgery | DX: N61.1 Abscess of the breast and nipple (principal) | CPT/HCPCS: 99212 ==

== ENCOUNTER 2023-03-31 09:30 | Outpatient (REF) | payer OTHER, SELFPAY | END 2023-03-31 09:31 | disposition home or self-care (01) | LOC: HO.LNP 09:30 | PROVIDERS: PCP Internal Medicine; Visit Provider Advanced Practice Midwife | DX: A59.9 Trichomoniasis, unspecified (principal) | CPT/HCPCS: 99212 ==

== ENCOUNTER 2023-03-31 10:33 | Outpatient (REF) | payer OTHER, SELFPAY ==
[2023-03-31 12:17] LABS: HBsAGNum1 0.35 S/CO (0.00-0.99); HIV AB/AG Nonreactive (Nonreactive); HIV Num 1 0.06 S/CO (0.00-0.99); Hepatitis B Surface Antigen Negative (Negative); ~Hepatitis C Antibody Nonreactive (Nonreactive)
[2023-03-31 12:48] LABS: Syphilis Screen Nonreactive (Nonreactive)
[2023-03-31 15:12] LABS: CT PCR NOT DETECTED (Not Detect.); NG PCR NOT DETECTED (Not Detect.)
[2023-04-01 10:00] LABS: BV Int Neg Control Negative (Negative); BV Int Pos Control Positive (Positive)
== END 2023-03-31 10:34 | disposition home or self-care (01) ==
LOC: HO.LAB 10:33
PROVIDERS: PCP Internal Medicine; Visit Provider Advanced Practice Midwife
DX: Z11.3 Encounter for screening for infections with a predominantly sexual mode of transmission (principal); Z11.4 Encounter for screening for human immunodeficiency virus [HIV]
CPT/HCPCS: 0353U; 86780; 86803; 87340; 87389; 87480; 87510; 87660

== ENCOUNTER 2023-04-25 10:56 | Outpatient (AMB) | payer OTHER, SELFPAY ==
--- NOTE | 2023-04-25 11:03 | MHC.PC.OV ---
Vital Signs 04/25/23 11:05 Height 5 ft 11 in Weight 212 lb 4 oz BMI 29.6 BP 110/62 Blood Pressure Location Lt brachial Position Sitting Pulse 75 Pulse Source Pulse Oximeter Pulse Oximetry (%) 98 Oxygen Delivery Method Room Air Intake Visit Reasons: F/U, Intake Note: Patient is here to follow up on Neuropathy, Obesity. Finished Goods Stock Clerk Required: No Manager Web: Not Required per policy Accompanied by: Self / Same As Patient Allergies No Known Allergies Allergy (Verified 04/25/23 11:05) Medication List - Last Reconciled 04/25/23 by Jeremy Curyr MD gabapentin 0 mg PO Tobacco use date assessed: 04/25/23 Dental Screening Dental Screen Date: 04/25/23 Did you have a dental visit in the last 12 months?: Yes Did you have a dental problem in the last 6 months where you did not have access to dental care?: No Was dental information given to patient?: Patient has dentist HPI F/U, HPI Details sees neurology for peripheral neuropathy in hands; on gabapentin [facility] Medical History Obesity Surgical History History of 2 sections Family History Mother No problems noted. Father No problems noted. Paternal Grandmother Lung cancer Social History Housing: Apartment Alcohol intake: current Alcohol intake frequency: a few times a month Patient Tobacco Use Status: Current everyday Tobacco user Tobacco use type: Cigarette Cigarettes Per Day: 2 e-Cigarette/Vaping Use: Never Used Second Hand Smoke Exposure: Yes Substance Use Type: Marijuana service: No Current occupational status: unemployed Cognitive needs: No Hearing needs: No Vision needs: Yes (Glasses) Female Reproductive History Menstrual Age of Menarche: 15 Questionnaire Thrive Questionnaire Date Thrive assessed: 10/25/22 MARY KAY-7 AMB Questionnaire MARY KAY-7 Date MARY KAY - 7 assessed: 10/25/22 Source: Developed by Drs. Hilario Davila, Danna Cary, Virgil Block and colleagues, with an educational gregg from [employer] Review of Systems Const Denies chills, Denies headache(s) and Denies weight loss ENT Denies headache(s) Card Denies chest pain, Denies syncope, Denies irregular heart rhythm and Denies dyspnea Resp Denies chest congestion, Denies cough and Denies dyspnea GI Denies abdominal pain, Denies change in stool character, Denies nausea and Denies vomiting Musc Denies deformity and Denies joint swelling Neuro Denies syncope and Denies headache(s) Physical exam (Primary Care) Vital Signs: Last Vital Signs Pulse 75 04/25/23 11:05 BP 110/62 04/25/23 11:05 Pulse Ox 98 04/25/23 11:05 Oxygen Delivery Method Room Air 04/25/23 11:05 BMI result Body Mass Index 29.6 Tobacco/Smoking Status: Tobacco use Status Tobacco use date assessed 04/25/23 04/25/23 11:07 Patient Tobacco Use Status Current everyday Tobacco 04/25/23 11:07 Tobacco use type Cigarette 04/25/23 11:07 e-Cigarette/Vaping Use Never Used 04/25/23 11:07 Thrive Assessment: Date of Thrive Assessment Date Thrive assessed 10/25/22 04/25/23 11:07 Const General: cooperative, comfortable and no acute distress HENMT Head: Yes normal to inspection Neck Neck: Yes normal visual inspection Chest Other: left breast cellulitis and induration; no drainage Resp Effort & Inspection: normal respiratory effort Cardio Rate: regular rate Rhythm: regular rhythm Assessment and Plan Assessment & Plan (1) Peripheral neuropathy: Code(s): G62.9 - Polyneuropathy, unspecified Plan: f/u with neuro Coding Level of Care Code Est Pt Level 3 (31655) Diagnoses Peripheral neuropathy G62.9
[2023-04-25 11:05] VITALS: BP 110/62; PULSE 75; O2SAT 98; BMI 29.6
== END 2023-04-25 11:17 | disposition home or self-care (01) ==
PROVIDERS: PCP Internal Medicine; Visit Provider Internal Medicine
DX: G62.9 Polyneuropathy, unspecified (principal)
CPT/HCPCS: 99213